=== PATIENT | female | born 2005 | race African-American/Black ===

== ENCOUNTER 2024-12-28 08:53 | Emergency (ER) | payer OTHER, SELFPAY ==
[2024-12-28 08:55] VITALS: BP 133/97; PULSE 70; RESP 18; TEMP 36.6; O2SAT 100
--- NOTE | 2024-12-28 09:05 | ED_ITS ---
HPI - URI/Sore Throat General Chief Complaint: Upper Respiratory Infection Stated Complaint: runny nose, cough Time Seen by Provider: 12/28/24 09:02 Source: patient and family Mode of arrival: ambulatory Limitations: no limitations History of Present Illness HPI Narrative: Patient is a 19-year-old female with cough and congestion for the past 4 days. 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 She also has chronic nausea that last more than a year now. MD elicited complaint: cough and nasal congestion Pertinent past history: other ( Patient had a baby 6 months ago) Onset (ago): day(s) (4) Consistency: constant Severity: mild Pain scale (0-10): 0 Description of mucous: clear Able to tolerate fluids by mouth: Yes Exacerbating factors: nothing Relieving factors: nothing Context: sick contacts Associated symptoms: nasal congestion, cough and nausea ( chronic) Treatments prior to arrival: none Related Data Allergies Allergy/AdvReac Type Severity Reaction Status Date / Time Penicillins Allergy Intermediate Swelling Verified 12/28/24 09:17 Review of Systems Review of Systems: All systems reviewed & are unremarkable except as noted in HPI and below Constitutional: Constitutional: Reports no additional constitutional complaints Eyes: Eyes: Reports no additional eye complaints ENT: Reports system reviewed and no additional complaints, except as documented Cardiovascular: Cardiovascular: Reports no additional cardiovascular complaints Respiratory: Respiratory: Reports no additional respiratory complaints Gastrointestinal: Gastrointestinal: Reports no additional gastrointestinal complaints Genitourinary: Genitourinary: Reports no additional female genitourinary complaints Musculoskeletal: Musculoskeletal: Reports no additional musculoskeletal complaints Integumentary/Breasts: Skin/Breast: Reports system reviewed and no additional complaints, except as docu Neurologic: Reports system reviewed and no additional complaints, except as documented Psychiatric: Psychiatric: Reports no additional psychiatric complaints Endocrine: Endocrine: Reports no additional endocrine complaints Hematologic/Lymphatic: Hematologic/Lymphatic: Reports no additional hematologic/lymphatic complaints Allergic/Immunologic: Allergic/Immunologic: Reports no additional allergic/immunologic complaints Exam Const: General: healthy appearing Nutritional Appearance: well nourished Orientation/consciousness: patient oriented x3 HENMT: Head: normal to inspection Ears: external ears normal Face/Nose/Sinus: Normal external nose present Eyes: Conjunctivae: conjunctivae normal Pupils: Equal, round and reactive pupils present EOM: EOMs intact bilaterally Neck: Neck: normal visual inspection Chest: Chest palpation & inspection: normal inspection of the chest Resp: Effort & Inspection: normal respiratory effort and not labored Auscultation: clear to auscultation bilaterally and no crackles Cardio: Rate: regular rate Rhythm: regular rhythm Heart sounds: no murmurs GI: Inspection: non-distended GI Palp: Yes Soft to palpation and No Tenderness to palpation present (GI) Auscultation: normal bowel sounds : General: Yes bladder normal to palpation Back/Spine/Pelvis: Back: no CVA tenderness Skin: General skin exam: normal color Rashes: no rashes Wounds: no wounds Neuro: General: patient oriented x3 Cranial nerves: Yes Nystagmus not present Speech: normal speech Extrem: General: normal to inspection Psych: Mental Status: mental status grossly normal Affect: normal affect Attitude: cooperative Course Vital Signs Vital signs: Vital Signs Temperature 36.6 C 12/28/24 08:55 Pulse Rate 70 12/28/24 08:55 Respiratory Rate 18 12/28/24 08:55 Blood Pressure 133/97 H 12/28/24 08:55 Pulse Oximetry 100 12/28/24 08:55 Oxygen Delivery Room Air 12/28/24 08:55 Temperature 36.6 C 12/28/24 08:55 Pulse Rate 70 12/28/24 08:55 Respiratory Rate 18 12/28/24 08:55 Blood Pressure 133/97 H 12/28/24 08:55 Pulse Oximetry 100 12/28/24 08:55 Oxygen Delivery Room Air 12/28/24 08:55 MDM - URI/Sore Throat MDM Narrative Medical decision making narrative: patient is a 19-year-old female with upper respiratory complaints. She also has chronic nausea. We will do a COVID swab panel. Also strep. Lab Data Attestation: I reviewed the patient's lab results. Labs: Strep negative, COVID panel negative, urine negative, urinalysis negative Discharge Plan Discharge Clinical Impression: Viral syndrome, Nausea Patient Disposition: Home, Self-Care Condition: Stable Instructions: Viral Syndrome (ED) Additional Instructions: please follow-up with the primary doctor in the next week. I suggest a hydrant setter for the chronic nausea and further evaluation. You have a viral syndrome that should self resolve over the next few days. I have given you nausea tablets until you can get a diagnosis of the chronic nausea. Patient Language: Citizen Of [place] Prescriptions: New ondansetron 4 mg tablet,disintegrating 4 mg PO Q8H PRN (Reason: nausea and vomiting) Qty: 20 0RF Follow-up/Referrals: UNKNOWN,DOCTOR [Non-Staff] - Time of Disposition: 09:59
[2024-12-28 09:11] LABS: Add Urine Microscopic? NO; Appearance Urine Clear (Clear); Bilirubin Urine Negative (Negative); Blood Urine Trace-intact (Negative); Color Urine Light Yellow (Yellow); Glucose Urine UA Negative (Negative); Ketones Urine Negative (Negative); Leukocyte Esterase Ur Negative LEU/UL (Negative); Nitrate Urine Negative (Negative); Protein Urine Negative (Negative); Specific Grav Ur 1.025 (1.010-1.020); Urobilinogen Urine 0.2 mg/dL (0.2-1.0)
--- NOTE | 2024-12-28 09:12 | PC.NURSE ---
covid culture sent to lab
[2024-12-28 09:13] VITALS: O2SAT 100
[2024-12-28 09:15] LABS: Pregnancy On Board Control Positive; Urine Pregnancy Test Negative
[2024-12-28 09:36] LABS: Strep Group A RT-PCR NOT DETECTED (Negative)
[2024-12-28 09:40] LABS: SARS-CoV-2 RNA PCR Negative (Negative)
[2024-12-28 09:41] LABS: Influenza B QL RT-PCR Negative (Negative)
[2024-12-28 09:42] LABS: Influenza A QL RT-PCR Negative (Negative); RSV RNA, RT-PCR Negative (Negative)
--- OUTSIDE RECORDS SUMMARY | 2024-12-28 09:45 | XMS_ITS | Clinical Summary ---
Author Organization [facility] Address [address] [place] [address]. [place], [place] [id number] [place] [id number] Care Team Providers Care [employer] Name Role Phone Buck Alonzo MD Primary Care Provider [phone] Allergies Active Allergy Reactions Criticality Noted Date Comments Penicillins Unknown 05/20/2024 Social History Tobacco Use Types Packs/Day Years Used Date Smoking Tobacco: Never Assessed Comments No Sex and Gender Information Value Date Recorded Sex Assigned at Female 05/20/2024 11:56 AM CDT Legal Sex Female 11:51 AM CDT Gender Identity Not on file Sexual Orientation Not on file Last Filed Vital Signs Vital Sign Reading Time Taken Comments Blood Pressure 117/59 05/20/2024 12:11 PM CDT Pulse 68 05/20/2024 12:11 PM CDT Temperature 36.9 ??C (98.4 ??F) 05/20/2024 12:14 PM C DT Respiratory Rate 26 05/20/2024 12:14 PM CDT Oxygen Saturation 100% 05/20/2024 12:14 PM CDT Inhaled Oxygen Concentration - - Weight 99.8 kg (220 lb) 05/20/2024 12:14 PM CDT Height 160 cm (5' 3 ) 05/20/2024 12:14 PM CDT Body Mass Index 38.97 05/20/2024 12:14 PM CDT Plan of Treatment Health Maintenance Due Date Last Done Comments Annual Physical 02/09/2007 HPV Vaccines (1 - 3-dose series) 02/09/2019 Meningococcal B Vaccine (1 o f 2 - Standard) 2020 Hepatitis C 02/09/2022 DTaP, Tdap and Td Vaccines ( 1 - Tdap) 02/09/2023 Hepatitis B Vaccines (1 of 3 - 19+ 3-dose series) 02/09/2023 COVID-19 Vaccine (2023-2 5 season) 2024 Influenza Adult (#1) 2024 Meningococcal Vaccine Aged Out No violette jimbo eligible based on patient's age to complete this topic Pneumococcal Vaccine: Pediat rics (0 to 5 Years) and At-Risk Patients (6 to 64 Years) Aged Out No longer eligible b ased on patient's age to complete this topic RSV Immunizations Under 20 Months Aged Out No longer eligible based on patient's age to complete this topic Insurance [place] Care Teams [employer] Relationship Specialty Start Date End Date Buck Alonzo MD [address] [place] [address] [phone] PCP - General FAMILY PRACTICE 05/20/24
[2024-12-28 10:06] VITALS: BP 141/84; PULSE 69; RESP 20; TEMP 36.5; O2SAT 100
== END 2024-12-28 10:11 | disposition home or self-care (01) ==
PROVIDERS: Emergency Provider Emergency Medicine; PCP Registered Nurse
DX: B34.9 Viral infection, unspecified (principal); R11.0 Nausea; Z20.822 Contact with and (suspected) exposure to COVID-19
CPT/HCPCS: 81003; 81025; 87637; 87651; 99283